=== PATIENT | female | born 2000 | race Caucasian/White ===

== ENCOUNTER → 2021-02-18 | Outpatient (CLI) | payer OTHER ==
[2021-02-18 15:13] LABS: HEMATOCRIT 38.6 % (36.0-47.0); HEMOGLOBIN 12.8 g/dl (12.0-15.5); MEAN CORPUSCULAR HEMOGLOBIN 29.7 pg (27.0-33.0); MEAN CORPUSCULAR HGB CONC 33.2 g/dl (32.0-36.5); MEAN CORPUSCULAR VOLUME 89.6 fl (80.0-96.0); PLATELET COUNT, AUTOMATED 194 10^3/uL (150-450); RED BLOOD COUNT 4.31 10^6/uL (4.00-5.40); WHITE BLOOD COUNT 10.4 10^3/uL (4.0-10.0)
[2021-02-18 15:48] LABS: FREE T4 0.95 NG/DL (0.76-1.46); THYROID STIMULATING HORMONE 0.799 uIU/ML (0.358-3.740)
[2021-02-18 16:00] LABS: HEPATITIS B SURFACE ANTIGEN NEGATIVE (NEGATIVE)
[2021-02-18 16:28] LABS: HEPATITIS C VIRUS ABY INDEX 0.1 INDEX (<0.8); HIV 1&2 SCREEN CENTAUR NEGATIVE (NEGATIVE)
[2021-02-18 16:48] LABS: GC DNA AMPLIFICATION NEGATIVE (NEGATIVE)
== END ==
LOC: M PLALAB 13:18
PROVIDERS: ATTEND Advanced Practice Midwife
DX: Z36.89 Encounter for other specified antenatal screening (principal); Z3A.09 9 weeks gestation of pregnancy

== ENCOUNTER → 2021-04-14 | Outpatient (CLI) | payer OTHER | LOC: M PLALAB 13:55 | PROVIDERS: ATTEND Advanced Practice Midwife | DX: Z34.82 Encounter for supervision of other normal pregnancy, second trimester (principal); Z3A.00 Weeks of gestation of pregnancy not specified ==

== ENCOUNTER → 2021-05-11 | Outpatient (CLI) | payer OTHER ==
--- NOTE | 2021-05-11 20:14 | REP ---
INDICATION: ANATOMY. COMPARISON: None. TECHNIQUE: Second trimester anatomy screening. FINDINGS: Scanning demonstrates a viable single intrauterine gestation in a breech lie. motion is observed and heart rate is recorded at 152 beats per minute. An posterior, grade zero placenta is seen without evidence of previa. Amniotic fluid is subjectively normal. Closed cervical length is measured at 3.6 cm transabdominally. No extrauterine abnormality is observed. There has been appropriate interval growth. No anomaly is seen but the exam is limited due to breech position.. The following anatomic structures are identified and felt to be sonographically unremarkable: Cranial vault, cavum septum pellucidum, falx cerebri, lateral ventricles, choroid plexus, cerebellum, cisterna magna, profile view, cardiac rhythm, abdominal wall, three-vessel cord, bladder, upper and lower extremities. The orbits, lungs, spine, kidneys, diaphragm, four-chamber heart and outflow tracts are not well visualized. Biometry chart: BPD 4.6 cm; 19 weeks 6 days Head circumference 17.6 cm; 20 weeks 1 days Abdominal circumference 15.3 cm; 20 weeks 3 days Femur length 3.2 cm; 20 weeks 0 days Humeral length 3.2 cm; 20 weeks 6 days HC/AC ratio normal 1.15 Cephalic index normal 0.71 Estimated weight 341 grams, 0 pounds 12 ounces, 17 percentile for 20 weeks 6 days. IMPRESSION: Viable single intrauterine gestation at 20 weeks 2 days by today's composite sonographic criteria. Expected gestational age estimate based on prior sonography is 20 weeks is 6 days. MARY by prior sonography 09/22/21. No anomaly. However limited examination and multiple structures need to be reassessed later in the 2nd trimester, due to the breech position limiting the exam. <Electronically signed by Bunny Mott > 05/11/212009
== END ==
LOC: M WHC 14:31
PROVIDERS: ATTEND Advanced Practice Midwife
DX: Z36.89 Encounter for other specified antenatal screening (principal); O32.1XX0 Maternal care for breech presentation, not applicable or unspecified; Z3A.20 20 weeks gestation of pregnancy